=== PATIENT | female | born 1985 | race Caucasian/White ===

== ENCOUNTER → 2017-12-21 | Outpatient (CLI) | payer OTHER ==
--- NOTE | 2017-12-21 17:00 | US ---
EXAMINATION TYPE: US pelvis complete transvag DATE OF EXAM: 12/21/2017 COMPARISON: NONE CLINICAL HISTORY: N92.0 Menorrhagia. Tubal ligation. 11 years ago. Pelvic cramping. Heavy m enses. Intermittent spotting in between menses TECHNIQUE: Transvaginal (TV) and Transabdominal (TA) . Transabdominal sonographic images of the pel vis were acquired. Transvaginal sonographic images were medically necessary to better assess the fol lowing anatomy: uterus and ovaries Date of LMP: 12/11/17 EXAM MEASUREMENTS: Uterus: 7.7 x 4.3 x 4.7 cm Endometrial Stripe: 0.7 cm Right Ovary: 2.8 x 2.2 x 2.2 cm Left Ovary: 3.7 x 2.5 x 1.8 cm 1. Uterus: Anteverted Nabothian cysts 2. Endometrium: heterogeneous, possible hyperechoic area = 1.0 x 0.5 x 1.2cm 3. Right Ovary: follicles noted 4. Left Ovary: follicles noted 5. Bilateral Adnexa: appears wnl 6. Posterior cul-de-sac: wnl No adnexal mass. No free fluid. IMPRESSION: There is a small oval-shaped hyperechoic focus in the endometrial cavity that could be a polyp or blood clot. No adnexal mass or free fluid.
== END | disposition home or self-care (01) ==
LOC: RADUSWWP 16:09
PROVIDERS: ATTEND Family Medicine
DX: N92.0 Excessive and frequent menstruation with regular cycle (principal)
CPT/HCPCS: 76830; 76856

== ENCOUNTER → 2018-01-11 | Outpatient (CLI) | payer OTHER ==
[2018-01-11 16:38] LABS: Basophils # (A) 0.1 k/uL (0-0.2); Basophils % (A) 1 %; Eosinophils # (A) 0.2 k/uL (0-0.7); Eosinophils % (A) 3 %; HCT 34.9 % (34.0-46.0); HGB 10.9 gm/dL (11.4-16.0); Hypochromasia Slight; Lymphocytes # (A) 1.8 k/uL (1.0-4.8); Lymphocytes % (A) 20 %; MCH 25.8 pg (25.0-35.0); MCHC 31.2 g/dL (31.0-37.0); MCV 82.7 fL (80.0-100.0); Mean Platelet Volume 7.4; Monocytes # (A) 0.4 k/uL (0-1.0); Monocytes % (A) 5 %; Neutrophils # (A) 6.4 k/uL (1.3-7.7); Neutrophils % (A) 70 %; Platelet Count 311 k/uL (150-450); RBC 4.22 m/uL (3.80-5.40); RDW 15.7 % (11.5-15.5); WBC 9.1 k/uL (3.8-10.6)
== END | disposition home or self-care (01) ==
LOC: LABPAT 16:13
PROVIDERS: ATTEND Obstetrics & Gynecology
DX: Z01.812 Encounter for preprocedural laboratory examination (principal); Z01.818 Encounter for other preprocedural examination; N84.0 Polyp of corpus uteri; N92.0 Excessive and frequent menstruation with regular cycle
CPT/HCPCS: 85025; 93005

== ENCOUNTER 2018-01-17 08:47 | Day surgery (SDC) | payer OTHER ==
[2018-01-13 14:41] VITALS: BMI 38.9
[~2018-01-17 08:47] MED LIST: DEXAMETHASONE SOD PHOSPHATE 10 MG/ML 1 ML VIAL IV ONE; LACTATED RINGERS 1,000 ML IV SCH; LIDOCAINE 1% 20 ML VIAL (10MG/ML) FOR IV START INTRADERMA PRN; MORPHINE SULFATE 4 MG/0.8 ML SYRINGE (INJ) IV PRN; ONDANSETRON ODT 4 MG TAB PO ONE; Pre Op ABX Message 1 EACH MISC MISCELLANE ONE; SCOPOLAMINE 1.5MG/72HR PATCH TRANSDERM ONE
[2018-01-17] MEDS ORDERED: ONDANSETRON 4 MG/2 ML VIAL IVP ONE (09:48)
[2018-01-17] MEDS ORDERED: MIDAZOLAM 2 MG/2 ML VIAL IV ONE (10:32)
[2018-01-17] MEDS ORDERED: PROPOFOL 10 MG/ML 20 ML VIAL IV ONE (10:56)
[2018-01-17] MEDS ORDERED: KETOROLAC 30 MG/ML 1 ML VIAL ONE (10:56)
[2018-01-17] MEDS ORDERED: LIDOCAINE 1% INJ 10MG/ML (20 ML MDV) ONE (10:56)
[2018-01-17] MEDS ORDERED: fentaNYL (PF) 50 MCG/ML 2 ML AMP ONE (10:56)
[2018-01-17] MEDS ORDERED: SUCCINYLCHOLINE CHLORIDE 100 MG/5 ML SYR IV ONE (10:56)
--- NOTE | 2018-01-17 11:20 | P.OP ---
Date of Procedure: 01/17/18 Preoperative Diagnosis: Menorrhagia, endometrial polyps Postoperative Diagnosis: Same Procedure(s) Performed: D&C, hysteroscopy, polypectomy. Anesthesia: GETA Surgeon: Mendy Reveles Associate Creative Director #1: Stated None Estimated Blood Loss (ml): 10 IV fluids (ml): 600 Urine output (ml): 100 Pathology: other (Endometrial curettings and polyp) Condition: stable Disposition: PACU Operative Findings: Proliferative-type endometrial tissue with likely small polyps Description of Procedure: Patient is brought to the operating suite where a general anesthetic is administered. She's placed in the dorsal lithotomy position. The appropriate timeout is performed to assure proper patient and procedural identification. Antibiotics are not deemed necessary. Beta-hCG is negative. The cervix, vagina , and perineal bodies are all prepped and draped in the usual sterile fashion. The bladder is drained for approximately 100 mL of clear yellow urine. Examination under anesthesia reveals a small anteverted uterus, negative adnexa bilaterally. The weighted speculum was placed into the vagina. The anterior lip of the cervix is grasped with a double-tooth tenaculum. The cervix is gently dilated to approximately 14-Montserratian. The hysteroscope was placed, the cavity is distended using sterile saline. Hysteroscope was placed, cavity is inspected and noted to contain shaggy proliferative type tissue with likely small polyps. Hysteroscope was removed. A medium sharp curette is used and the cavity is gently and systematically curettaged. When this is completed, the hysteroscope was once again placed and the cavity appears to be clear. Instrumentation is removed, the cervix is noted to be clean and dry. All sponge needle and instrument counts are correct. Patient is brought back to recovery room in stable condition with a pulse of 69, blood pressure 134/82. Patient is given Toradol prior to leaving the operative suite.
[2018-01-17 11:36] VITALS: TEMP 97.4
[2018-01-17 11:45] VITALS: RESP 16
[2018-01-17] MEDS ORDERED: fentaNYL (PF) 50 MCG/ML 2 ML AMP IVP ONE (11:53)
[2018-01-17 13:17] VITALS: BP 114/78; PULSE 72
== END 2018-01-17 13:29 | disposition home or self-care (01) ==
LOC: OR 08:47
PROVIDERS: ATTEND Obstetrics & Gynecology
DX: N84.0 Polyp of corpus uteri (principal); N92.0 Excessive and frequent menstruation with regular cycle; F17.210 Nicotine dependence, cigarettes, uncomplicated; J45.909 Unspecified asthma, uncomplicated; I10 Essential (primary) hypertension; Z79.899 Other long term (current) drug therapy
CPT/HCPCS: 81025; 88305; 58558; J2250; J1100; J2405; J2001; J3010; J1885; J0330; J2704

== ENCOUNTER → 2018-11-17 | Outpatient (CLI) | payer OTHER ==
[2018-11-17 17:09] LABS: Anisocytosis Slight; Basophils # (A) 0.1 k/uL (0-0.2); Basophils % (A) 1 %; Eosinophils # (A) 0.2 k/uL (0-0.7); Eosinophils % (A) 2 %; HCT 33.8 % (34.0-46.0); HGB 10.3 gm/dL (11.4-16.0); Hypochromasia Marked; Lymphocytes # (A) 2.5 k/uL (1.0-4.8); Lymphocytes % (A) 21 %; MCHC 30.5 g/dL (31.0-37.0); MCV 78.5 fL (80.0-100.0); Mean Platelet Volume 6.2; Microcytosis Slight; Monocytes # (A) 0.5 k/uL (0-1.0); Monocytes % (A) 5 %; Neutrophils # (A) 8.2 k/uL (1.3-7.7); Neutrophils % (A) 70 %; Platelet Count 283 k/uL (150-450); RDW 16.1 % (11.5-15.5); WBC 11.7 k/uL (3.8-10.6)
== END | disposition home or self-care (01) ==
LOC: LABPAT 16:12
PROVIDERS: ATTEND Obstetrics & Gynecology
DX: Z01.812 Encounter for preprocedural laboratory examination (principal); N92.0 Excessive and frequent menstruation with regular cycle
CPT/HCPCS: 36415; 85025

== ENCOUNTER 2018-11-20 06:08 | Day surgery (SDC) | payer OTHER ==
--- NOTE | 2018-11-16 16:36 | HP ---
HISTORY AND PHYSICAL DATE OF SURGERY: 11/20/2018 This is a 33-year-old white female, 1, para 0-1-0-1, who presents with heavy clotty menstrual cycles. Menses occur every 28-30 days. She does not have intermenstrual spotting. Recent blood work confirmed hemoglobin of 10.8. Patient is requesting endometrial ablation. She has received the literature, reviewed info, and has no questions. PAST MEDICAL HISTORY: Past medical history is significant for asthma, dyspareunia, Patrice-Chiu virus, hay fever, essential hypertension, and abnormal Pap smear in the past. PAST SURGICAL HISTORY: 1. Adenoidectomy and tonsillectomy in 1984. 2. in 2005. 3. Eustachian tubes in the right ear. CURRENT MEDICATIONS: 1. Adderall 1 pill twice daily. 2. Lorazepam 1 mg twice daily. 3. Metoprolol 100 mg once daily. 4. Venlafaxine HCL once daily. ALLERGIES: NONE KNOWN. FAMILY HISTORY: Significant for ulcerative colitis, hypertension, myocardial infarction, diabetes, breast cancer, aortic aneurysm. REPRODUCTIVE HISTORY: section in 2009 at 31 weeks for severe preeclampsia. SOCIAL HISTORY: The patient smokes. Social alcohol. One half pack per day tobacco for 17 years. PHYSICAL EXAMINATION: This is a pleasant white female, 235 pounds, 5 feet 3 inches, BMI 41. Blood pressure 126/80. Patient is afebrile. HEENT exam reveals no thyromegaly, no cervical lymphadenopathy. Good dentition. Neck is soft and supple with good range of motion. CHEST: Clear to auscultation in all mann anteriorly and posteriorly. Cardiac exam reveals regular rate and rhythm with no murmur, click or rub. Bilateral breasts are pendulous. No skin dimpling, nipple discharge or axillary adenopathy. No masses. ABDOMEN: Obese but soft and nontender. Active bowel sounds. No herniorrhaphy. Extremities reveal no edema, good peripheral pulses. On genitalia examination, the external genitalia are within normal limits, well estrogenized. Cervix is nulliparous. Office endometrial sampling reveals a large amount of tissue, benign pathology. Adnexa are negative to palpation bilaterally; no adnexal masses. Rectal exam reveals anus within normal limits, good rectal tone. Skin reveals no rashes, no lesions, no areas of discoloration. IMPRESSION: Menorrhagia, secondary anemia. Patient requesting NovaSure ablation. Previous tubal ligation performed. PLAN: We will proceed with hysteroscopy and NovaSure endometrial ablation. Questions have been answered, pamphlet on procedure reviewed thoroughly. We have discussed the risks to include but not be exclusive of bleeding, infection, perforation or damage to the bladder, bowels, ureters, or indeed any pelvic or abdominal organs. Risk of aspiration, nerve damage or even from anesthesia have been discussed. Patient would like to proceed with this procedure and it has been scheduled per her convenience. MMODL / IJN: [id number] /
[2018-11-17 12:15] VITALS: BMI 38.9
[~2018-11-20 06:08] MED LIST changes: +MIDAZOLAM 2 MG/2 ML VIAL IV PRN; -MORPHINE SULFATE 4 MG/0.8 ML SYRINGE (INJ) IV PRN; -ONDANSETRON ODT 4 MG TAB PO ONE; -Pre Op ABX Message 1 EACH MISC MISCELLANE ONE; -SCOPOLAMINE 1.5MG/72HR PATCH TRANSDERM ONE; +ceFAZolin IN SWFI 2 GM/20 ML SYRINGE IVP ONE; +fentaNYL (PF) 50 MCG/ML 2 ML AMP IV PRN
[2018-11-20] MEDS ORDERED: SCOPOLAMINE 1.5MG/72HR PATCH TRANSDERM ONE (06:52)
[2018-11-20] MEDS ORDERED: ONDANSETRON 4 MG/2 ML VIAL IVP ONE (06:52)
[2018-11-20] MEDS ORDERED: KETOROLAC 30 MG/ML 1 ML VIAL ONE (07:25)
[2018-11-20] MEDS ORDERED: PROPOFOL 10 MG/ML 20 ML VIAL IV ONE (07:25)
[2018-11-20] MEDS ORDERED: MIDAZOLAM 2 MG/2 ML VIAL ONE (07:25)
[2018-11-20] MEDS ORDERED: LIDOCAINE 1% INJ 10MG/ML (20 ML MDV) ONE (07:25)
[2018-11-20] MEDS ORDERED: fentaNYL (PF) 50 MCG/ML 2 ML AMP ONE (07:25)
--- NOTE | 2018-11-20 07:55 | P.OP ---
Date of Procedure: 11/20/18 Preoperative Diagnosis: Menorrhagia Postoperative Diagnosis: Endometrial polyp Procedure(s) Performed: Hysteroscopy, polypectomy, NovaSure endometrial ablation Anesthesia: SYLVIAA Surgeon: Mendy Reveles Estimated Blood Loss (ml): 5 IV fluids (ml): 500 Urine output (ml): 100 Pathology: other (Endometrial polyp fragments) Condition: stable Disposition: PACU Operative Findings: 1 large endometrial polyps situated at 6:00 in the endometrial cavity, otherwise negative cavity. Description of Procedure: Patient is brought to the operating suite where general anesthetic is administered. She's placed in the dorsal lithotomy position. The appropriate timeout was performed to assure proper patient procedure identification. The cervix, vagina, perineal body are all prepped and draped in the usual sterile fashion. Examination under anesthesia reveals a small mobile anteverted uterus , negative adnexa bilaterally. Bladder is drained for approximately 100 mL of clear yellow urine. The weighted speculum was placed into the vagina. The anterior lip of the cervix is grasped with a double-tooth tenaculum. Cervix sounds to a depth of 9 cm in the anteverted position. Cervix was gently and systematically dilated using Hanks dilators. Hysteroscope was introduced and the cavity is distended with sterile saline. There is a polyp noted at 6:00, approximately 5 mm in diameter. The ostia are negative. The rest of the cavity is negative. The hysteroscope was removed. Sharp medium curette is used and the polyp is removed and sent to pathology for evaluation. Hysteroscope was once again introduced and the cavity is clear. NovaSure wand is opened and placed into the cavity. Uterine length of 6.0 cm, width of 3.9 cm is noted. The machine is properly enabled. For 48 seconds with a polyp 129 [address]. the procedure is carried out. When the machine shuts off, the wand is reduced and removed. Hysteroscope was once again introduced and the cavity is noted to be uniformly blanched, consistent with thorough procedure. All instrumentation is removed. Cervix is clean and dry. All sponge needle and enhancement counts are correct at the end of the procedure. Patient is brought back to recovery room in stable condition with a pulse of 63, 96% O2 saturation, blood pressure 126/69. All sponge needle and enhancement counts are correct at the end of the procedure. Toradol is given prior to leaving the operative suite. Patient will follow-up with me in the office in 2 weeks.
[2018-11-20 08:05] VITALS: TEMP 97.4
[2018-11-20 08:31] VITALS: RESP 18
[2018-11-20 09:13] VITALS: BP 115/76; PULSE 70
== END 2018-11-20 09:26 | disposition home or self-care (01) ==
LOC: OR 06:08
PROVIDERS: ATTEND Obstetrics & Gynecology
DX: N84.0 Polyp of corpus uteri (principal); N85.00 Endometrial hyperplasia, unspecified; N92.0 Excessive and frequent menstruation with regular cycle; N85.4 Malposition of uterus; D50.0 Iron deficiency anemia secondary to blood loss (chronic); J45.909 Unspecified asthma, uncomplicated; N94.10 Unspecified dyspareunia; B27.00 Gammaherpesviral mononucleosis without complication; I10 Essential (primary) hypertension; F32.9 Major depressive disorder, single episode, unspecified; F17.210 Nicotine dependence, cigarettes, uncomplicated; Z79.899 Other long term (current) drug therapy; Z98.51 Tubal ligation status
CPT/HCPCS: 81025; 88305; 58563; J2250; J1100; J2405; J2001; J3010; J1885; J2704

== ENCOUNTER → 2021-01-28 | Outpatient (CLI) | payer BC ==
--- NOTE | 2021-01-28 09:43 | MM ---
Reason for exam: screening (asymptomatic). Baseline mammogram. History: Family history of breast cancer in maternal aunt at age 70 and breast cancer in paternal aunt at age 70. Physical Findings: Nurse did not find any significant physical abnormalities on exam. MG 3D Screening Mammo W/Cad Bilateral CC and MLO view(s) were taken. The breast tissue is heterogeneously dense. This may lower the sensitivity of mammography. No suspicious calcifications are seen. Focal asymmetry upper outer right breast. These results were verbally communicated with the patient and result sheet given to the patient on 01/28/21. ASSESSMENT: Incomplete: need additional imaging evaluation, BI-RAD 0 RECOMMENDATION: Special view mammogram of the right breast.
--- NOTE | 2021-01-28 09:47 | MM ---
Reason for exam: additional evaluation requested from abnormal screening. History: Family history of breast cancer in maternal aunt at age 70 and breast cancer in paternal aunt at age 70. Physical Findings: Breast exam preformed at baseline screening. MG 3D Work Up W/Cad RT Spot compression CC, spot compression MLO, and LM view(s) were taken of the right breast. The breast tissue is heterogeneously dense. This may lower the sensitivity of mammography. There is no discrete abnormality including area of concern. These results were verbally communicated with the patient and result sheet given to the patient on 01/28/21. ASSESSMENT: Probably benign, BI-RAD 3 RECOMMENDATION: Follow-up diagnostic mammogram of the right breast in 6 months.
== END | disposition home or self-care (01) ==
LOC: RADMAMWWP 01-26 06:56
PROVIDERS: ATTEND Family Medicine
DX: Z12.31 Encounter for screening mammogram for malignant neoplasm of breast (principal); Z80.3 Family history of malignant neoplasm of breast; R92.8 Other abnormal and inconclusive findings on diagnostic imaging of breast
CPT/HCPCS: 77061; 77063; 77065; 77067

== ENCOUNTER → 2021-07-24 | Outpatient (CLI) | payer MEDICAID ==
--- NOTE | 2021-07-24 11:57 | USB ---
Reason for exam: follow-up at short interval from prior study. History: Family history of breast cancer in maternal aunt at age 70 and breast cancer in paternal aunt at age 70. Physical Findings: Nurse did not find any significant physical abnormalities on exam. US Breast BILAT Right complete breast ultrasound includes all four quadrants, the retroareolar region and axilla. Finding demonstrates no cystic or solid lesion seen. Left complete breast ultrasound includes all four quadrants, the retroareolar region and axilla. Finding demonstrates no cystic or solid lesion seen. These results were verbally communicated with the patient and result sheet given to the patient on 07/24/21. ASSESSMENT: Negative, BI-RAD 1 RECOMMENDATION: Follow-up diagnostic mammogram of the right breast.
--- NOTE | 2021-07-24 11:58 | MM ---
Reason for exam: follow-up at short interval from prior study. Last mammogram was performed 6 months ago. History: Family history of breast cancer in maternal aunt at age 70 and breast cancer in paternal aunt at age 70. MG 3D Diag Mammo W/Cad RT CC and MLO view(s) were taken of the right breast. Prior study comparison: January 28, 2021, right breast MG 3d work up w/cad RT. January 28, 2021, bilateral MG 3d screening mammo w/cad. There are scattered fibroglandular densities. Focal asymmetry, stable. No significant new findings when compared with previous films. These results were verbally communicated with the patient and result sheet given to the patient on 07/24/21. ASSESSMENT: Benign, BI-RAD 2 RECOMMENDATION: Routine screening mammogram of both breasts at age 38.
--- NOTE | 2021-07-24 13:56 | XR ---
EXAMINATION TYPE: XR lumbosacral spine min 4V DATE OF EXAM: 07/24/2021 COMPARISON: None HISTORY: Low back pain TECHNIQUE: 5 view lumbar spine FINDINGS: There are 5 lumbar-type vertebral bodies. Pedicles are intact. Disc heights are preserved. Vertebral body heights are preserved. Facets are normal. No spondylolytic defects are evident. IMPRESSION: 1. Normal 5 view lumbar spine
[2021-07-25 12:46] LABS: HLA B27 POSITIVE
[2021-07-27 16:19] LABS: Follicle Stimulating Hormone 2.2 mIU/mL
[2021-07-27 17:14] LABS: Rheumatoid Factor, Qnt <10 IU/mL (0-15)
== END | disposition home or self-care (01) ==
LOC: RADUSWWP 08:48
PROVIDERS: ATTEND Family Medicine
DX: R92.2 Inconclusive mammogram (principal); Z80.3 Family history of malignant neoplasm of breast; M54.50 Low back pain, unspecified
CPT/HCPCS: 36415; 72110; 77061; 77065; 83001; 83036; 85652; 86038; 86431; 86812

== ENCOUNTER → 2021-08-28 | Outpatient (CLI) | payer MEDICAID, OTHER | END | disposition home or self-care (01) | LOC: LABWHC1 11:14 | PROVIDERS: ATTEND Emergency Medicine | DX: Z20.822 Contact with and (suspected) exposure to COVID-19 (principal) | CPT/HCPCS: 87635 ==

== ENCOUNTER → 2021-09-02 | Outpatient (CLI) | payer MEDICAID, OTHER | END | disposition home or self-care (01) | LOC: LABMAIN 15:14 | PROVIDERS: ATTEND Emergency Medicine | DX: U07.1 COVID-19 (principal) | CPT/HCPCS: 87635 ==

== ENCOUNTER → 2021-11-14 | Outpatient (CLI) | payer MEDICAID ==
[2021-11-14 12:02] LABS: Basophils # (A) 0.05 X 10*3/uL (0.00-0.10); Basophils % (A) 0.5 %; Eosinophils # (A) 0.25 X 10*3/uL (0.04-0.35); Eosinophils % (A) 2.5 %; HCT 42.4 % (37.2-46.3); HGB 14.1 g/dL (12.0-15.0); Immature Grans, Automated 0.4 %; Lymphocytes # (A) 2.75 X 10*3/uL (0.90-5.00); Lymphocytes % (A) 27.7 %; MCH 32.1 pg (27.0-32.0); MCHC 33.3 g/dL (32.0-37.0); MCV 96.6 fL (80.0-97.0); Mean Platelet Volume 10.6 fL (9.5-12.2); Monocytes # (A) 0.42 X 10*3/uL (0.20-1.00); Monocytes % (A) 4.2 %; NRBC Per 100 WBC 0 /100 WBCS (0.0-0.0); Neutrophils % (A) 64.7 %; Platelet Count 230 X 10*3/uL (140-440); RBC 4.39 X 10*6/uL (4.10-5.20); RDW 12.8 % (11.5-14.5); WBC 9.91 X 10*3/uL (4.50-10.00)
[2021-11-14 12:18] LABS: ALT 52 U/L (8-44); AST 41 U/L (13-35); African American GFR (CKD) 127.4 (60.0-200.0); BUN/Creat Ratio 10.71 Ratio (12.00-20.00); Blood Urea Nitrogen 7.5 mg/dL (9.0-27.0); Calcium 9.5 mg/dL (8.7-10.3); Carbon Dioxide 20.4 mmol/L (20.0-27.5); Chloride 102 mmol/L (96-109); Creatine Kinase 45 U/L (26-186); Glucose 129 mg/dL (70-110); Non-African American GFR(CKD) 109.9 (60.0-200.0); Potassium 4.2 mmol/L (3.5-5.5); Sodium 139 mmol/L (135-145); Uric Acid 6.4 mg/dL (2.9-7.7)
[2021-11-14 12:30] LABS: Rheumatoid Factor, Qnt <10 IU/mL (0-15)
[2021-11-14 15:01] LABS: Cyclic Citrull Pep IgG Unit <0.5 U/mL; Cyclic Citrullinated Pep IgG NEGATIVE (NEGATIVE)
[2021-11-14 16:49] LABS: Erythrocyte Sedimentation Rate 32 mm/Hr (0-20)
[2021-11-16 09:38] LABS: Angiotensin-1 Converting Enz. 24 U/L (8-52)
== END | disposition home or self-care (01) ==
LOC: LABWHC1 08:49
PROVIDERS: ATTEND Internal Medicine Rheumatology
DX: M13.0 Polyarthritis, unspecified (principal)
CPT/HCPCS: 36415; 80048; 82164; 82306; 82550; 83520; 84439; 84443; 84450; 84460; 84550; 85025; 85652; 86140; 86200; 86431

== ENCOUNTER 2024-04-30 22:44 | Inpatient (IN) | payer MEDICAID ==
[~2024-04-30 22:44] MED LIST changes: -DEXAMETHASONE SOD PHOSPHATE 10 MG/ML 1 ML VIAL IV ONE; -LACTATED RINGERS 1,000 ML IV SCH; -LIDOCAINE 1% 20 ML VIAL (10MG/ML) FOR IV START INTRADERMA PRN; +LORazepam 1 MG TAB ONE; -MIDAZOLAM 2 MG/2 ML VIAL IV PRN; -ceFAZolin IN SWFI 2 GM/20 ML SYRINGE IVP ONE; -fentaNYL (PF) 50 MCG/ML 2 ML AMP IV PRN
[2024-05-01] MEDS ORDERED: VENLAFAXINE HCL ER 75 MG CAP PO ONE (08:34)
[2024-05-01] MEDS ORDERED: METOPROLOL TARTRATE 50 MG TAB ONE (08:34)
[2024-05-01] MEDS ORDERED: POTASSIUM CHLORIDE ER 20 MEQ TAB.ER PO ONE (11:40)
[2024-05-01] MEDS ORDERED: traZODone HCL 50 MG TAB ONE (22:05)
[2024-05-01] MEDS ORDERED: NICOTINE 14MG/24HR PATCH TRANSDERM ONE (22:07)
[2024-05-02] MEDS ORDERED: VENLAFAXINE HCL ER 75 MG CAP PO ONE (07:59)
[2024-05-02] MEDS ORDERED: NICOTINE 14MG/24HR PATCH TRANSDERM ONE (07:59)
[2024-05-03] MEDS ORDERED: NICOTINE 14MG/24HR PATCH TRANSDERM ONE (08:01)
[2024-05-03] MEDS ORDERED: LITHIUM CARBONATE ER 450 MG TABLET.ER PO ONE (08:01)
[2024-05-03] MEDS ORDERED: VENLAFAXINE HCL ER 75 MG CAP PO ONE (08:02)
[2024-05-03] MEDS ORDERED: METOPROLOL TARTRATE 50 MG TAB ONE (08:02)
[2024-05-04] MEDS ORDERED: NICOTINE 14MG/24HR PATCH TRANSDERM ONE (07:55)
[2024-05-04] MEDS ORDERED: LITHIUM CARBONATE ER 450 MG TABLET.ER PO ONE (07:55)
[2024-05-04] MEDS ORDERED: VENLAFAXINE HCL ER 75 MG CAP PO ONE (07:55)
== END 2024-05-04 12:41 | disposition home or self-care (01) | DRG 885 ==
LOC: UNDOADMIN 22:44 → 3NCARDOBS 22:44 → 3MHU 22:44 → UNDODISIN 05-04 12:34
PROVIDERS: ADMIT Psychiatry & Neurology Psychiatry; ATTEND Psychiatry & Neurology Psychiatry
DX: F31.60 Bipolar disorder, current episode mixed, unspecified (principal); F41.9 Anxiety disorder, unspecified; I10 Essential (primary) hypertension; R45.1 Restlessness and agitation; E87.6 Hypokalemia; E11.9 Type 2 diabetes mellitus without complications; F17.210 Nicotine dependence, cigarettes, uncomplicated; Z11.52 Encounter for screening for COVID-19; Z79.899 Other long term (current) drug therapy; Z63.5 Disruption of family by separation and divorce; Z81.8 Family history of other mental and behavioral disorders; Z79.85 Long-term (current) use of injectable non-insulin antidiabetic drugs
CPT/HCPCS: 80048; 80053; 80178; 83735; 84132; 84443; 84702; 85025; 87635; 93005; 99285

== ENCOUNTER 2025-03-24 14:42 | Emergency (ER) | payer OTHER, MEDICAID ==
[2025-03-24 14:48] VITALS: RESP 18; TEMP 98.6
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
[2025-03-24 16:14] VITALS: BP 152/100; PULSE 95
== END 2025-03-24 16:15 | disposition home or self-care (01) ==
LOC: EC 14:42
DX: Z04.1 Encounter for examination and observation following transport accident (principal); S39.012A Strain of muscle, fascia and tendon of lower back, initial encounter; V89.2XXA Person injured in unspecified motor-vehicle accident, traffic, initial encounter
CPT/HCPCS: 72050; 99284

== ENCOUNTER 2025-03-30 11:47 | Emergency (ER) | payer MEDICAID, OTHER ==
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
[2025-03-30 13:35] LABS: Basophils # (A) 0.06 10*3/uL (0.00-0.10); Basophils % (A) 0.8 %; Eosinophils # (A) 0.29 10*3/uL (0.04-0.35); Eosinophils % (A) 3.8 %; HCT 40.2 % (37.2-46.3); HGB 14.3 g/dL (12.0-15.0); Lymphocytes # (A) 2.76 10*3/uL (0.90-5.00); Lymphocytes % (A) 36.3 %; MCH 32.4 pg (27.0-32.0); MCHC 35.6 g/dL (32.0-37.0); MCV 91.2 fL (80.0-97.0); Monocytes # (A) 0.48 10*3/uL (0.20-1.00); Monocytes % (A) 6.3 %; Neutrophils # (A) 4.01 10*3/uL (1.80-7.70); Neutrophils % (A) 52.7 %; Platelet Count 234 10*3/uL (140-440); RBC 4.41 10*6/uL (4.10-5.20); RDW 12.3 % (11.5-14.5); WBC 7.61 10*3/uL (4.50-10.00)
[2025-03-30] MEDS: KETOROLAC 15 MG/ML 1 ML VIAL IVP STA (13:35)
[2025-03-30] MEDS: LACTATED RINGERS 1,000 ML IV ONE (13:40)
[2025-03-30 13:49] LABS: INR 1.0 (<1.2); Partial Thromboplastin Time 24.9 sec (22.0-30.0); Prothrombin Time 11.0 sec (10.0-12.5)
[2025-03-30 13:50] LABS: Bilirubin,Urine Negative (Negative); Blood,Urine Trace (Negative); Color,Urine Light Yellow; Glucose,Urine (UA) Negative (Negative); Ketones,Urine Negative (Negative); Leukocyte Esterase,Urine Negative (Negative); Mucus,Urine Occasional /hpf; Nitrite,Urine Negative (Negative); PH, Urine 6.0 (5.0-8.0); Protein,Urine Negative (Negative); RBC,Urine 2 /hpf (0-5); Specific Gravity,Urine 1.013 (1.001-1.035); Squamous Epithelial Cell,Urine 4 /hpf (0-4); Urobilinogen,Urine <2.0 mg/dL (<2.0); WBC,Urine 3 /hpf (0-5)
[2025-03-30 13:50] LABS: ALT 15 U/L (4-34); AST 17 U/L (14-36); African American GFR (CKD) >90 (>60 ml/min/1.73 sqM); Albumin 4.1 g/dL (3.5-5.0); Alkaline Phosphatase 77 U/L (38-126); Anion Gap 10 mmol/L; Blood Urea Nitrogen 7 mg/dL (7-17); Calcium 9.8 mg/dL (8.4-10.2); Carbon Dioxide 25 mmol/L (22-30); Chloride 105 mmol/L (98-107); Glucose 88 mg/dL (74-99); Magnesium 1.9 mg/dL (1.6-2.3); Non-African American GFR(CKD) >90 (>60 ml/min/1.73 sqM); Potassium 3.6 mmol/L (3.5-5.1); Sodium 140 mmol/L (137-145); Total Protein 6.9 g/dL (6.3-8.2)
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
[2025-03-30 15:21] VITALS: BP 135/97; PULSE 67; RESP 16; TEMP 98.4
[2025-03-30] MEDS: traMADol 50 MG STARTER PACK TAB BTL PO STA (15:23)
== END 2025-03-30 15:30 | disposition home or self-care (01) ==
LOC: EC 11:47
DX: S13.9XXA Sprain of joints and ligaments of unspecified parts of neck, initial encounter (principal); F07.81 Postconcussional syndrome; F17.200 Nicotine dependence, unspecified, uncomplicated; V89.2XXA Person injured in unspecified motor-vehicle accident, traffic, initial encounter
CPT/HCPCS: 36415; 93005; 80053; 83735; 84100; 84443; 84484; 85025; 85610; 85730; 81001; 72125; 70450; 99284; 96374; 96361; J1885